=== PATIENT | female | born 1995 | race African-American/Black ===

== ENCOUNTER 2018-05-27 20:21 | Emergency (ER) | payer MEDICAID ==
[~2018-05-27] VITALS: Ht 170.2 cm; Wt 75.0 kg
[2018-05-27 20:33] VITALS: BP 120/64
== END 2018-05-28 01:50 | disposition left against medical advice (07) ==
LOC: ER 20:21
DX: F41.9 Anxiety disorder, unspecified (principal); Z53.21 Procedure and treatment not carried out due to patient leaving prior to being seen by health care provider